=== PATIENT | female | born 1970 | race Two or more races ===

== ENCOUNTER 2022-09-23 04:55 | Inpatient (IN) | payer MEDICAID ==
[~2022-09-23] VITALS: Ht 157.5 cm; Wt 59.0 kg
[2022-09-23 05:57] LABS: Basophils # (auto) 0 10 ^3/uL (0-0.2); Basophils % (auto) 0.6 % (0.0-2.0); Eosinophils # (auto) 0.1 10 ^3/uL (0-0.8); Eosinophils % (auto) 1.8 % (0.0-7.0); Hematocrit 34.4 % (36.0-46.0); Hemoglobin 12.4 g/dL (12.2-16.2); Lymphocytes # (auto) 2.1 10 ^3/uL (0.4-5.4); Lymphocytes % (auto) 45.4 % (10.0-50.0); Mean Corpuscular Hemoglobin 29.9 pg (28.0-32.0); Mean Corpuscular Hgb Conc. 36.1 g/dL (32.0-36.0); Mean Corpuscular Volume 82.8 fL (80.0-100.0); Monocytes # (auto) 0.3 10 ^3/uL (0-1.3); Monocytes % (auto) 6.8 % (0.0-12.0); Neutrophils # (auto) 2.1 10 ^3/uL (1.6-8.6); Neutrophils % (auto) 45.4 % (37.0-80.0); Nucleated Red Blood Cells % 0.3 %; Red Blood Cells 4.15 10^6/uL (4.0-5.20); Red Cell Distribution Width 13.1 % (11.8-14.3); White Blood Cell 4.6 10^3/uL (4.4-10.8)
[2022-09-23 06:14] LABS: Albumin 3.9 g/dL (3.4-5.0); BUN/Creatinine Ratio 11.8 (10.0-20.0); Calcium 9.1 mg/dL (8.5-10.1); Potassium 3.7 mmol/L (3.5-5.1)
[2022-09-23] MEDS ORDERED: IOHEXOL 350 MG/ML 100ML IJ ONE (06:44)
[2022-09-23] MEDS ORDERED: LABETALOL HCL 5 MG/ML 4ML SYRINGE IV ONE (06:45)
[2022-09-23] MEDS ORDERED: ASPirin 81 mg TAB PO ONE (06:45)
[2022-09-23 06:49] LABS: Bilirubin, Total 0.4 mg/dL (0.2-1.0); Magnesium 2.2 mg/dL (1.6-2.6); Total Protein 8.3 g/dL (6.4-8.2)
[2022-09-23] MEDS ORDERED: ACETAMINOPHEN 325 MG TAB PO PRN (09:15)
[2022-09-23] MEDS ORDERED: MORPHINE SULFATE INJ 2 MG/ml SYRG IV PRN ×2 (09:15)
[2022-09-23] MEDS ORDERED: NTG 0.1MG/HR TOPICAL PATCH TD ONE (09:15)
[2022-09-23] MEDS ORDERED: NITROGLYCERIN 0.4 MG SL TAB SL PRN (09:15)
[2022-09-23] MEDS ORDERED: hydrALAZINE HCL 20 MG/ML VL IV PRN (09:15)
[2022-09-23] MEDS ORDERED: LISINOPRIL 10 MG TAB PO ONE (09:15)
[2022-09-23] MEDS ORDERED: ENOXAPARIN SOD 60 MG/0.6 ML SYRINGE SC ONE (10:00)
[2022-09-23 10:23] LABS: Urine Bacteria NONE SEEN /hpf (None Seen); Urine Blood 2+ /uL (Negative); Urine WBC 1 /hpf (0 - 5)
[2022-09-23 10:32] LABS: INR 0.96 (0.9-1.15); Partial Thromboplastin Time 24.9 sec (24.6-33.4)
[2022-09-23 11:13] LABS: Urine Specific Gravity > 1.050 (1.001-1.035)
[2022-09-23] MEDS: METOPROLOL SUCCINATE XL 50 MG TAB PO SCH (11:23)
[2022-09-23] MEDS: PANTOPRAZOLE 40 MG/10 ML VIAL INJ IV SCH (11:23)
[2022-09-23] MEDS: LISINOPRIL 10 MG TAB PO SCH (11:23)
[2022-09-23] MEDS: HYDROcodone-ACET 5/325MG TAB PO PRN ×2 (13:24→21:28)
[2022-09-23 14:05] LABS: Cholesterol 231 mg/dL (< 200); Magnesium 2.4 mg/dL (1.6-2.6)
[2022-09-23 14:34] LABS: HDL Cholesterol 41 mg/dL (40-59); Triglycerides 523 mg/dL (< 150)
[2022-09-23 16:34] LABS: Alcohol, Urine < 3.0 mg/dL (0-10); Amphetamine Screen, Urine NEGATIVE (NEGATIVE); Barbiturate Scree,Urine NEGATIVE (NEGATIVE); Benzodiazephine Screen, Urine NEGATIVE (NEGATIVE); Cannabinoid Screen, Urine NEGATIVE (NEGATIVE); Cocaine Screen, Urine NEGATIVE (NEGATIVE); Opiate Scree,Urine NEGATIVE (NEGATIVE); Phencyclidine Screen, Urine NEGATIVE (NEGATIVE)
[2022-09-23 22:00] VITALS: BP 121/83
[2022-09-23] MEDS: ATORVASTATIN 20 MG TAB PO SCH (22:00)
[2022-09-23] MEDS ORDERED: ATO40T PO (22:19)
[2022-09-23] MEDS ORDERED: GEMF-19 PO (22:19)
[2022-09-24 04:48] VITALS: BP 95/58
[2022-09-24 06:09] LABS: Basophils # (auto) 0 10 ^3/uL (0-0.2); Basophils % (auto) 0.6 % (0.0-2.0); Eosinophils # (auto) 0.1 10 ^3/uL (0-0.8); Eosinophils % (auto) 2.1 % (0.0-7.0); Hematocrit 35.2 % (36.0-46.0); Hemoglobin 12.3 g/dL (12.2-16.2); Lymphocytes # (auto) 2.4 10 ^3/uL (0.4-5.4); Lymphocytes % (auto) 39.3 % (10.0-50.0); Mean Corpuscular Hemoglobin 29.8 pg (28.0-32.0); Mean Corpuscular Hgb Conc. 34.8 g/dL (32.0-36.0); Mean Corpuscular Volume 85.4 fL (80.0-100.0); Monocytes # (auto) 0.4 10 ^3/uL (0-1.3); Monocytes % (auto) 6.6 % (0.0-12.0); Neutrophils # (auto) 3.2 10 ^3/uL (1.6-8.6); Neutrophils % (auto) 51.4 % (37.0-80.0); Nucleated Red Blood Cells % 0.2 %; Red Blood Cells 4.12 10^6/uL (4.0-5.20); Red Cell Distribution Width 12.9 % (11.8-14.3); White Blood Cell 6.1 10^3/uL (4.4-10.8)
[2022-09-24 06:24] LABS: Albumin 3.6 g/dL (3.4-5.0); Calcium 9.3 mg/dL (8.5-10.1); Potassium 4.1 mmol/L (3.5-5.1)
[2022-09-24 06:27] LABS: BUN/Creatinine Ratio 14.6 (10.0-20.0)
[2022-09-24 06:29] LABS: Bilirubin, Total 0.5 mg/dL (0.2-1.0); Total Protein 7.6 g/dL (6.4-8.2)
[2022-09-24] MEDS ORDERED: ADENOSINE 50 MG in GIVE UN-DILUTED 0 ML IV STA (07:22)
[2022-09-24 08:04] VITALS: BP 113/78
[2022-09-24 08:30] VITALS: BP 107/74
[2022-09-24] MEDS: ASPirin 81 mg TAB PO SCH (09:31)
[2022-09-24] MEDS: PANTOPRAZOLE 40 MG/10 ML VIAL INJ IV SCH (09:31)
[2022-09-24] MEDS: ENOXAPARIN SOD 40 MG/0.4 ML SYRINGE SC SCH (09:32)
[2022-09-24] MEDS: LISINOPRIL 10 MG TAB PO SCH (09:38)
[2022-09-24] MEDS: METOPROLOL SUCCINATE XL 50 MG TAB PO SCH (09:38)
[2022-09-24 10:35] LABS: Free T4 (Free Thyroxine) 1.2 ng/dL (0.89-1.76)
[2022-09-24 10:36] LABS: Free T3 3.15 pg/mL (2.3-4.2)
[2022-09-24 13:00] VITALS: BP 108/74
[2022-09-24 16:34] VITALS: BP 110/76
[2022-09-24] MEDS: ATORVASTATIN 20 MG TAB PO SCH (21:19)
[2022-09-24 22:00] VITALS: BP 117/74
[2022-09-25 05:00] VITALS: BP 99/68
[2022-09-25 06:34] LABS: Cholesterol 212 mg/dL (< 200); HDL Cholesterol 37 mg/dL (40-59); Triglycerides 667 mg/dL (< 150)
[2022-09-25 08:39] VITALS: BP 130/68
[2022-09-25] MEDS: METOPROLOL SUCCINATE XL 50 MG TAB PO SCH (08:56)
[2022-09-25] MEDS: ASPirin 81 mg TAB PO SCH (08:56)
[2022-09-25] MEDS: PANTOPRAZOLE 40 MG/10 ML VIAL INJ IV SCH (08:56)
[2022-09-25] MEDS: ENOXAPARIN SOD 40 MG/0.4 ML SYRINGE SC SCH (08:56)
[2022-09-25] MEDS: LISINOPRIL 10 MG TAB PO SCH (08:56)
[2022-09-25] MEDS ORDERED: FENOFIBRATE 48 MG PO SCH (10:00)
[2022-09-25 13:00] VITALS: BP 121/76
[2022-09-25] MEDS ORDERED: NITR0.4S29 SL (13:14)
[2022-09-25] MEDS ORDERED: ASPI1TAB20 PO (13:14)
[2022-09-25] MEDS ORDERED: FENO5TAB PO (13:14)
[2022-09-25] MEDS ORDERED: LISI-716 PO (13:14)
[2022-09-25] MEDS ORDERED: ATOR20TA PO (13:14)
[2022-09-25 16:20] VITALS: BP 100/65
[2022-09-25 16:26] VITALS: BP 104/71
== END 2022-09-25 17:20 | disposition home or self-care (01) | DRG 190 ==
LOC: ER 04:55 → TELE 09:50 → TELE-WESTW 20:34
PROVIDERS: ADMIT Registered Nurse; ATTEND Internal Medicine
DX: I24.9 Acute ischemic heart disease, unspecified (principal); I21.A1 Myocardial infarction type 2; E03.9 Hypothyroidism, unspecified; E78.5 Hyperlipidemia, unspecified; I10 Essential (primary) hypertension; Z83.49 Family history of other endocrine, nutritional and metabolic diseases; Z82.49 Family history of ischemic heart disease and other diseases of the circulatory system; Z90.49 Acquired absence of other specified parts of digestive tract
CPT/HCPCS: 36415; 71045; 71275; 78452; 80053; 80061; 80307; 81001; 81025; 83036; 83735; 83880; 84439; 84443; 84481; 84484; 85025; 85610; 85730; 93005; 93017; 93306; 96372; 96374; 99291; C9113; G0378; J0153

== ENCOUNTER → 2023-01-19 | Outpatient (CLI) | payer MEDICAID ==
[~2023-01-19] MED LIST: ASPI1TAB20 PO; ATO40T PO; ATOR20TA PO; FENO5TAB PO; GEMF-66 PO; LISI10TA34 PO; NITR0.4S29 SL
[2023-01-19 11:18] LABS: Cholesterol 234 mg/dL (< 200); HDL Cholesterol 27 mg/dL (40-59); Triglycerides 1200 mg/dL (< 150)
[2023-01-19 11:54] LABS: Urine Bacteria NONE SEEN /hpf (None Seen); Urine Blood 3+ /uL (Negative); Urine Clarity Clear (Clear); Urine Color Yellow (Yellow); Urine Mucus FEW (None Seen); Urine Protein, UAD TRACE (Negative); Urine Specific Gravity 1.012 (1.001-1.035); Urine Urobilinogen Normal (Negative); Urine WBC 3 /hpf (0 - 5); Urine pH 5.5 (5.0-8.0)
== END | disposition home or self-care (01) ==
LOC: LAB 09:48
PROVIDERS: ATTEND Internal Medicine
DX: Z12.11 Encounter for screening for malignant neoplasm of colon (principal); R31.9 Hematuria, unspecified; E03.9 Hypothyroidism, unspecified
CPT/HCPCS: 36415; 80061; 81001; 84443; 87086

== ENCOUNTER → 2023-04-10 | Outpatient (CLI) | payer MEDICAID ==
[2023-04-10 11:03] LABS: Urine Bacteria FEW /hpf (None Seen); Urine Blood TRACE /uL (Negative); Urine Clarity HAZY (Clear); Urine Color Yellow (Yellow); Urine Mucus FEW (None Seen); Urine Protein, UAD TRACE (Negative); Urine Specific Gravity 1.023 (1.001-1.035); Urine Urobilinogen Normal (Negative); Urine WBC <1 /hpf (0 - 5); Urine pH 5.5 (5.0-8.0)
[2023-04-10 11:31] LABS: Alanine Aminotransferase 28 U/L (7-40); Albumin 4.6 g/dL (3.2-4.8); Alkaline Phosphatase 80 U/L (46-116); Anion Gap 7 (5-15); Aspartate Aminotransferase 32 U/L (13-40); BUN/Creatinine Ratio 15.1 (10.0-20.0); Bilirubin, Total 0.6 mg/dL (0.2-1.0); Blood Urea Nitrogen 11 mg/dL (9-23); Calcium 9.3 mg/dL (8.5-10.1); Carbon Dioxide 25 mmol/L (20-30); Chloride 105 mmol/L (98-107); Cholesterol 229 mg/dL (< 200); Glucose 106 mg/dL (74-106); Potassium 4.2 mmol/L (3.5-5.1); Sodium 137 mmol/L (136-145); Triglycerides 401 mg/dL (< 150)
[2023-04-10 11:32] LABS: Total Protein 7.7 g/dL (5.7-8.2)
[2023-04-10 11:42] LABS: LDL Cholesterol 107 mg/dL (< 100)
[2023-04-10 15:54] LABS: HDL Cholesterol 49 mg/dL (40-59)
== END | disposition home or self-care (01) ==
LOC: LAB 10:14
PROVIDERS: ATTEND Internal Medicine
DX: R10.2 Pelvic and perineal pain (principal); E78.5 Hyperlipidemia, unspecified
CPT/HCPCS: 36415; 80053; 80061; 81001

== ENCOUNTER 2023-10-07 17:19 | Emergency (ER) | payer MEDICAID ==
[~2023-10-07] VITALS: Ht 157.5 cm; Wt 59.0 kg
[~2023-10-07 17:19] MED LIST changes: -ATO40T PO; +ATOR-507 PO
[2023-10-07 21:43] LABS: Basophils # (auto) 0.1 10 ^3/uL (0-0.2); Basophils % (auto) 0.9 % (0.0-2.0); Eosinophils # (auto) 0 10 ^3/uL (0-0.8); Eosinophils % (auto) 0.5 % (0.0-7.0); Hemoglobin 12.2 g/dL (12.2-16.2); Lymphocytes # (auto) 1.7 10 ^3/uL (0.4-5.4); Lymphocytes % (auto) 19.8 % (10.0-50.0); Mean Corpuscular Hemoglobin 28.3 pg (28.0-32.0); Mean Corpuscular Hgb Conc. 33.9 g/dL (32.0-36.0); Mean Corpuscular Volume 83.4 fL (80.0-100.0); Monocytes # (auto) 0.4 10 ^3/uL (0-1.3); Monocytes % (auto) 4.3 % (0.0-12.0); Neutrophils # (auto) 6.4 10 ^3/uL (1.6-8.6); Neutrophils % (auto) 74.5 % (37.0-80.0); Nucleated Red Blood Cells % 0.1 %; Red Blood Cells 4.32 10^6/uL (4.0-5.20); Red Cell Distribution Width 15.2 % (11.8-14.3); White Blood Cell 8.6 10^3/uL (4.4-10.8)
[2023-10-07 21:59] LABS: Alanine Aminotransferase 21 U/L (7-40); Albumin 4.9 g/dL (3.2-4.8); Alkaline Phosphatase 79 U/L (46-116); Anion Gap 11 (5-15); Aspartate Aminotransferase 35 U/L (13-40); BUN/Creatinine Ratio 9.5 (10.0-20.0); Bilirubin, Total 0.6 mg/dL (0.2-1.0); Blood Urea Nitrogen 7 mg/dL (9-23); Calcium 9.7 mg/dL (8.5-10.1); Carbon Dioxide 23 mmol/L (20-30); Chloride 102 mmol/L (98-107); Glucose 120 mg/dL (74-106); Potassium 3.9 mmol/L (3.5-5.1); Sodium 136 mmol/L (136-145); Total Protein 8.3 g/dL (5.7-8.2)
[2023-10-07 22:59] LABS: Urine WBC None Seen /hpf (0 - 5)
[2023-10-07 23:39] LABS: Urine Bacteria FEW /hpf (None Seen); Urine Blood TRACE /uL (Negative); Urine Clarity Clear (Clear); Urine Protein, UAD Negative (Negative); Urine Specific Gravity 1.005 (1.001-1.035); Urine Urobilinogen Normal (Negative); Urine pH 5.5 (5.0-9.0)
[2023-10-07 23:40] LABS: Urine Color STRAW (Yellow)
[2023-10-08] MEDS ORDERED: HYDR-4902 PO (00:01)
[2023-10-08] MEDS ORDERED: CYCL-611 PO (00:01)
[2023-10-08] MEDS: DexAMETHasone SOD PHOS 10MG/1ML VIAL INJ IM ONE (00:10)
[2023-10-08] MEDS: HYDROcodone-ACET 5/325MG TAB PO ONE (00:10)
[2023-10-08] MEDS: KETOROLAC TROMETH 60MG/2ML VIAL IM ONE (00:11)
[2023-10-08 00:35] VITALS: BP 132/84; PULSE 76; RESP 20; TEMP 98.6; O2SAT 97
== END 2023-10-08 01:38 | disposition home or self-care (01) ==
LOC: ER 17:19
DX: M62.830 Muscle spasm of back (principal); M54.50 Low back pain, unspecified; E78.5 Hyperlipidemia, unspecified; Z32.02 Encounter for pregnancy test, result negative; Z90.49 Acquired absence of other specified parts of digestive tract
CPT/HCPCS: 36415; 72131; 74176; 80053; 81001; 81025; 85025; 96372; 99285; J1100; J1885

== ENCOUNTER → 2023-11-10 | Outpatient (CLI) | payer MEDICAID ==
[~2023-11-10] MED LIST changes: +CYCL-611 PO; +HYDR-4902 PO
[2023-11-10 09:32] LABS: Urine Bacteria None Seen /hpf (None Seen)
[2023-11-10 09:37] LABS: Basophils # (auto) 0 10 ^3/uL (0-0.2); Basophils % (auto) 0.8 % (0.0-2.0); Eosinophils # (auto) 0.1 10 ^3/uL (0-0.8); Eosinophils % (auto) 1.8 % (0.0-7.0); Hematocrit 34.7 % (36.0-46.0); Lymphocytes # (auto) 2.1 10 ^3/uL (0.4-5.4); Mean Corpuscular Hemoglobin 28.9 pg (28.0-32.0); Mean Corpuscular Hgb Conc. 34.7 g/dL (32.0-36.0); Mean Corpuscular Volume 83.4 fL (80.0-100.0); Monocytes # (auto) 0.4 10 ^3/uL (0-1.3); Monocytes % (auto) 7.9 % (0.0-12.0); Neutrophils # (auto) 2.3 10 ^3/uL (1.6-8.6); Neutrophils % (auto) 46.5 % (37.0-80.0); Nucleated Red Blood Cells % 0.1 %; Red Blood Cells 4.16 10^6/uL (4.0-5.20); Red Cell Distribution Width 14.8 % (11.8-14.3); White Blood Cell 4.9 10^3/uL (4.4-10.8)
[2023-11-10 09:48] LABS: Urine Blood 1+ /uL (Negative); Urine Clarity Clear (Clear); Urine Color Light-Yellow (Yellow); Urine Protein, UAD Negative (Negative); Urine Specific Gravity 1.014 (1.001-1.035); Urine Urobilinogen Normal (Negative); Urine WBC <1 /hpf (0 - 5)
[2023-11-10 10:16] LABS: Cholesterol 253 mg/dL (< 200); Triglycerides 717 mg/dL (< 150)
[2023-11-10 10:17] LABS: Erythrocyte Sedimentation Rate 13 mm/hr (0-20)
[2023-11-10 10:18] LABS: HDL Cholesterol 43 mg/dL (40-59)
== END | disposition home or self-care (01) ==
LOC: LAB 09:23
PROVIDERS: ATTEND Internal Medicine
DX: E78.5 Hyperlipidemia, unspecified (principal); R39.9 Unspecified symptoms and signs involving the genitourinary system; R20.2 Paresthesia of skin
CPT/HCPCS: 36415; 80061; 81001; 85025; 85652; 87086

== ENCOUNTER → 2023-12-17 | Outpatient (CLI) | payer MEDICAID ==
[2023-12-17 11:28] LABS: Albumin 4.9 g/dL (3.2-4.8)
[2023-12-17 11:29] LABS: Bilirubin, Direct 0.3 mg/dL (<0.3); Bilirubin, Total 0.8 mg/dL (0.2-1.0); Total Protein 7.7 g/dL (5.7-8.2)
== END | disposition home or self-care (01) ==
LOC: LAB 10:48
PROVIDERS: ATTEND Internal Medicine
DX: E78.5 Hyperlipidemia, unspecified (principal)
CPT/HCPCS: 36415; 80076

== ENCOUNTER → 2024-08-17 | Outpatient (CLI) | payer MEDICAID ==
[2024-08-17 09:39] LABS: Basophils # (auto) 0 10 ^3/uL (0-0.2); Basophils % (auto) 0.6 % (0.0-2.0); Eosinophils # (auto) 0.1 10 ^3/uL (0-0.8); Eosinophils % (auto) 2.2 % (0.0-7.0); Hematocrit 35.8 % (36.0-46.0); Lymphocytes # (auto) 1.7 10 ^3/uL (0.4-5.4); Lymphocytes % (auto) 41.1 % (10.0-50.0); Mean Corpuscular Hemoglobin 28.4 pg (28.0-32.0); Mean Corpuscular Hgb Conc. 33.6 g/dL (32.0-36.0); Mean Corpuscular Volume 84.5 fL (80.0-100.0); Monocytes # (auto) 0.3 10 ^3/uL (0-1.3); Monocytes % (auto) 8.1 % (0.0-12.0); Nucleated Red Blood Cells % 0.1 %; Platelet Count (auto) 193 10^3/uL (140-450); Red Blood Cells 4.23 10^6/uL (4.0-5.20); Red Cell Distribution Width 13.8 % (11.8-14.3); White Blood Cell 4.3 10^3/uL (4.4-10.8)
[2024-08-17 10:07] LABS: Alanine Aminotransferase 21 U/L (7-40); Alkaline Phosphatase 57 U/L (46-116); Anion Gap 8 (5-15); Aspartate Aminotransferase 20 U/L (13-40); BUN/Creatinine Ratio 12.4 (10.0-20.0); Blood Urea Nitrogen 11 mg/dL (9-23); Calcium 9.8 mg/dL (8.7-10.4); Carbon Dioxide 26 mmol/L (20-31); Chloride 105 mmol/L (98-107); LDL Cholesterol 98 mg/dL (< 100); Potassium 4.5 mmol/L (3.5-5.1); Sodium 139 mmol/L (136-145); Total Protein 7.6 g/dL (5.7-8.2)
[2024-08-17 10:08] LABS: Bilirubin, Total 0.4 mg/dL (0.2-1.0); Cholesterol 173 mg/dL (< 200); HDL Cholesterol 55 mg/dL (40-59)
[2024-08-17 10:30] LABS: Albumin 4.9 g/dL (3.2-4.8); Glucose 130 mg/dL (74-106); Triglycerides 164 mg/dL (< 150)
== END | disposition home or self-care (01) ==
LOC: LAB 09:18
PROVIDERS: ATTEND Internal Medicine
DX: D64.9 Anemia, unspecified (principal); R07.9 Chest pain, unspecified
CPT/HCPCS: 36415; 80053; 80061; 83036; 84443; 85025; 85379

== ENCOUNTER 2025-02-09 09:30 | Outpatient (CLI) | payer MEDICAID ==
[2025-02-09 09:47] LABS: Hematocrit 36.3 % (36.0-46.0); Hemoglobin 12.4 g/dL (12.2-16.2); Mean Corpuscular Hemoglobin 29.1 pg (28.0-32.0); Mean Corpuscular Volume 84.9 fL (80.0-100.0); Nucleated Red Blood Cells % 0.0 %
[2025-02-09 09:56] LABS: Urine Protein, UAD TRACE (Negative)
[2025-02-09 10:17] LABS: Triglycerides 73 mg/dL (< 150)
[2025-02-09 10:19] LABS: Cholesterol 144 mg/dL (< 200)
[2025-02-09 10:21] LABS: HDL Cholesterol 66 mg/dL (40-59)
[2025-02-09 10:52] LABS: Microalb/Creat Ratio, Urine 5.0
[2025-02-09 13:11] LABS: Iron 80.0 ug/dL (50-170)
[2025-02-09 13:15] LABS: Total Iron Binding Capacity 488.0 ug/dL (250-425)
== END 2025-02-09 17:00 | disposition home or self-care (01) ==
LOC: LAB 09:30
PROVIDERS: ATTEND Internal Medicine
DX: E78.5 Hyperlipidemia, unspecified (principal); D64.9 Anemia, unspecified; R73.03 Prediabetes
CPT/HCPCS: 36415; 80061; 81001; 82043; 82570; 82607; 82746; 83036; 83540; 83550; 85025

== ENCOUNTER → 2025-02-15 | Outpatient (CLI) | payer MEDICAID ==
[2025-02-15 13:21] LABS: Urine Protein, UAD Negative (Negative)
== END | disposition home or self-care (01) ==
LOC: LAB 12:32
PROVIDERS: ATTEND Internal Medicine
DX: R31.9 Hematuria, unspecified (principal); Z12.11 Encounter for screening for malignant neoplasm of colon
CPT/HCPCS: 81001; 82270